=== PATIENT | female | born 1990 | race Caucasian/White ===

== ENCOUNTER → 2016-05-19 | Outpatient (CLI) | payer BC ==
--- NOTE | 2016-05-19 10:13 | REP ---
OB ULTRASOUND: Real-time sonographic evaluation of the gravid uterus is performed utilizing transabdominal technique. There is a single living intrauterine gestation with an estimated gestational age 21 weeks based on LMP with EDC 09/29/2016. Today's measurements indicate appropriate growth. Biometry and Growth: BPD 48 mm = 20 weeks 4 days, 39th percentile HC 179 mm = 20 weeks 2 days, 31st percentile AC 152 mm = 20 weeks 3 days, 38th percentile FL 34 mm = 20 weeks 6 days, 45th percentile HC/AC ratio 1.18 within normal range. Estimated weight 362 grams, 33rd percentile. SEEN/GROSSLY UNREMARKABLE Lateral ventricles Yes Posterior fossa Yes Upper lip No Four-chamber heart Yes LVOT Yes RVOT Yes Stomach Yes Cord insertion Yes Three vessel cord Yes Kidneys Yes Bladder Yes Spine Yes Cervical length: Closed and measures 4.7 cm in length. heart rate: 153 beats per minute. position: Vertex. Placenta: Posterior and grade 0 with no previa or abruption. Amniotic fluid: Within normal limits.
== END ==
LOC: M WHC 08:01
PROVIDERS: ATTEND Obstetrics & Gynecology
DX: Z34.82 Encounter for supervision of other normal pregnancy, second trimester (principal)

== ENCOUNTER → 2016-06-09 | Outpatient (CLI) | payer BC ==
--- NOTE | 2016-06-09 13:11 | REP ---
Obstetric ultrasound for follow-up of anatomy: On the prior study dated 05/19 2016, the upper lip of was not adequately demonstrated. The remainder of the anatomy was unremarkable. On the study today the upper lip is adequately demonstrated and is unremarkable. The remainder of the anatomy previously was unremarkable and is not repeated today. There is again a single intrauterine gestation. Fetus is in vertex presentation. There is motion and cardiac activity, the heart rate is 139 beats per minute. The cervix is 5 cm in length. According to the first ultrasound during this gestation the gestational age is 24-week 0 days with an ADONAY of 09/29/2016. No additional evaluation is requested or performed at today. Signed by James Newman MD 06/09/2016 01:02 P
== END ==
LOC: M WHC 10:17
PROVIDERS: ATTEND Obstetrics & Gynecology
DX: Z34.82 Encounter for supervision of other normal pregnancy, second trimester (principal)

== ENCOUNTER → 2016-06-17 | Outpatient (CLI) | payer BC ==
[2016-06-17 13:53] LABS: MEAN CORPUSCULAR HEMOGLOBIN 29.5 pg (27.0-33.0); MEAN CORPUSCULAR HGB CONC 32.1 g/dl (32.0-36.5); MEAN CORPUSCULAR VOLUME 92.2 fl (80.0-96.0); RED CELL DISTRIBUTION WIDTH 13.1 % (11.5-14.5); WHITE BLOOD COUNT 11.4 K/mm3 (4.0-10.0)
== END ==
LOC: M SMT 08:41
PROVIDERS: ATTEND Obstetrics & Gynecology
DX: Z34.82 Encounter for supervision of other normal pregnancy, second trimester (principal)

== ENCOUNTER → 2016-08-19 | Outpatient (CLI) | payer BC ==
--- NOTE | 2016-08-20 08:28 | REP ---
Clinical: Growth evaluation. Comparison: 08/12/2016 . Findings: Examination demonstrates a single live intrauterine in cephalic presentation. motion is identified by technologist. Placenta is noted left fundal and grade I without evidence for placenta previa or abruption. Amniotic fluid volume is normal. Cervix measures 5.3 cm in length and appears closed. Nuchal cord cannot be excluded. Gestational age by LMP 34 weeks 1 day with ADONAY 09/29/2016 . Gestational age by current measurements 35 weeks 5 days with ADONAY 09/18/2016 . FHR equals 144 beats per minute. BPD 8.9 cm 35 weeks 6 days HC 33.1 cm 37 weeks 5 days AC 30.2 cm 34 weeks 1 day FL 7.0 cm 35 weeks 5 days HC/AC ratio 1.10 Estimated weight 2599 grams ( 66 percentile). Amniotic fluid index equals 15.1 cm. Impression: Single live advanced gestation in cephalic presentation demonstrating appropriate interval growth. No gross abnormalities are identified. Nuchal cord cannot be excluded. Signed by Jono Hardin MD 08/20/2016 08:19 A
== END ==
LOC: M WHC 08:59
PROVIDERS: ATTEND Obstetrics & Gynecology
DX: Z34.03 Encounter for supervision of normal first pregnancy, third trimester (principal); Z3A.00 Weeks of gestation of pregnancy not specified

== ENCOUNTER → 2016-09-14 | Outpatient (CLI) | payer BC ==
[~2016-09-14] MED LIST: PRENTAB9 PO; TUMS500C PO
[2016-09-14 13:29] LABS: MEAN CORPUSCULAR HEMOGLOBIN 29.1 pg (27.0-33.0); MEAN CORPUSCULAR HGB CONC 32.8 g/dl (32.0-36.5); MEAN CORPUSCULAR VOLUME 88.8 fl (80.0-96.0); RED CELL DISTRIBUTION WIDTH 13.7 % (11.5-14.5)
[2016-09-14 13:48] LABS: ALT/SGPT 11 U/L (12-78); AST/SGOT 13 U/L (15-37); BILIRUBIN,TOTAL 0.2 MG/DL (0.2-1.0); CREATININE FOR GFR 0.56 MG/DL (0.55-1.02); GLOMERULAR FILTRATION RATE > 60.0 (>60); URIC ACID 4.2 MG/DL (2.6-6.0)
== END ==
LOC: M SMT 10:08
PROVIDERS: ATTEND Obstetrics & Gynecology
DX: Z34.83 Encounter for supervision of other normal pregnancy, third trimester (principal)

== ENCOUNTER 2016-09-19 08:29 | Inpatient (IN) | payer BC ==
[2016-09-19] VITALS (8 sets, daily range): BP systolic 121–138; BP diastolic 62–87
[~2016-09-19] VITALS: Ht 162.6 cm; Wt 124.0 kg
[2016-09-19 10:34] LABS: MEAN CORPUSCULAR HEMOGLOBIN 29.3 pg (27.0-33.0); MEAN CORPUSCULAR HGB CONC 33.5 g/dl (32.0-36.5); MEAN CORPUSCULAR VOLUME 87.5 fl (80.0-96.0); RED CELL DISTRIBUTION WIDTH 13.9 % (11.5-14.5)
[2016-09-19] MEDS: miSOPROStol 50 MCG 1/2 TAB (S0191) PO SCH ×3 (11:17→15:21)
--- NOTE | 2016-09-19 13:12 | HPE ---
DATE OF ADMISSION: 09/19/2016 26-year-old, (G) 1, para (P) 1 female at 37 and 2/7 weeks gestation by 8 week ultrasound and expected date of confinement (EDC) of 10/08/2016, who presents for labor induction. Indication for induction at less than 39 weeks is gestational hypertension. She denies contractions or vaginal leak. She denies headaches or blurry vision. COURSE: The patient initiated care at 9 weeks gestation on 03/03/2016. Her first trimester blood pressure was 122/74. At 36+ weeks gestation on 09/14/2016, she had a blood pressure of 142/90. Subsequently followup visit the following day revealed a similar blood pressure. She had labs for preeclampsia which were within normal limits. The decision was made to proceed with induction based upon multiple elevated blood pressures. MEDICAL HISTORY: Noncontributory. SURGICAL HISTORY: None. ALLERGIES: No known drug allergies. SOCIAL HISTORY: The patient is . She denies cigarettes, alcohol or drug use. FAMILY HISTORY: Noncontributory. PHYSICAL EXAMINATION: Blood pressure 143/87. Weight 283 pounds. Pulse 84. She is in no apparent distress. HEAD AND NECK EXAM: Normal. LUNGS: Clear. HEART: Regular rate and rhythm. ABDOMEN: Nontender. Gravid. heart tones Category 1. Contractions rare. STERILE VAGINAL EXAM: 1 cm, 50%, -3 station, vertex. EXTREMITIES: Nontender. LABS: Blood type A positive. Rubella immune. RPR nonreactive. Hepatitis B and C negative. HIV negative. CBC negative on 09/14/2016. ASSESSMENT: 26-year-old, G1, P0, female at 37 and 2/7 weeks gestation with gestational hypertension. The patient is admitted for induction on 09/19/2016. The risks of induction were discussed.
[2016-09-19] MEDS ORDERED: PRENTAB9 PO (14:54)
[2016-09-19] MEDS ORDERED: TUMS500C PO (14:54)
[2016-09-20] VITALS (26 sets, daily range): BP systolic 120–150; BP diastolic 62–89
[2016-09-20] MEDS ORDERED: PROMETHAZINE INJ 25 MG/ML VIAL (J2550) IV ONE ×2 (10:00→21:30)
[2016-09-20] MEDS ORDERED: BUTORPHANOL 2 MG/ML INJ (J0595) IV ONE ×2 (10:00→21:30)
[2016-09-20] MEDS: miSOPROStol 50 MCG 1/2 TAB (S0191) PO SCH (10:42)
[2016-09-20] MEDS ORDERED: OXYTOCIN DRIP 30 UNITS in APPROPRIATE DILUENT 1 EA IV SCH (15:15)
[2016-09-20] MEDS ORDERED: LR 1,000 ML IV SCH (15:15)
[2016-09-20 17:32] LABS: MEAN CORPUSCULAR HEMOGLOBIN 29.5 pg (27.0-33.0); MEAN CORPUSCULAR HGB CONC 33.8 g/dl (32.0-36.5); MEAN CORPUSCULAR VOLUME 87.5 fl (80.0-96.0); RED CELL DISTRIBUTION WIDTH 13.9 % (11.5-14.5); WHITE BLOOD COUNT 10.3 K/mm3 (4.0-10.0)
[2016-09-21] VITALS (61 sets, daily range): BP systolic 110–151; BP diastolic 55–90
[2016-09-21 07:36] LABS: MEAN CORPUSCULAR HEMOGLOBIN 29.8 pg (27.0-33.0); MEAN CORPUSCULAR HGB CONC 33.6 g/dl (32.0-36.5); MEAN CORPUSCULAR VOLUME 88.8 fl (80.0-96.0); RED CELL DISTRIBUTION WIDTH 14.2 % (11.5-14.5); WHITE BLOOD COUNT 11.4 K/mm3 (4.0-10.0)
[2016-09-21] MEDS ORDERED: OXYTOCIN 30 UNITS IN 0.9% NaCl 500ML IV BAG (J2590) As Ordered ONE (09:13)
[2016-09-21] MEDS ORDERED: FENTANYL 2MCG/ML ROPIVACAINE 0.2% IN 0.9% NACL 200ML IVBAG As Ordered ONE (15:20)
[2016-09-21] MEDS ORDERED: NALOXONE INJ 0.4 MG/1 ML VIAL (J2310) IV PRN (16:45)
[2016-09-21] MEDS ORDERED: LACTATED RINGER'S 1000 ML IV PRN (16:45)
[2016-09-21] MEDS ORDERED: diphenhydrAMINE INJ 50MG/ML VIAL (J1200) IV PRN (16:45)
[2016-09-21] MEDS ORDERED: EPIDURAL/PCA KEYS XX PRN (16:45)
[2016-09-21] MEDS ORDERED: REFRIGERATOR IV KEYS XX PRN (16:45)
[2016-09-21] MEDS ORDERED: ONDANSETRON 4MG/2ML VIAL (J2405) IV PRN (16:45)
[2016-09-21] MEDS ORDERED: EPIDURAL COMMENT XX SCH (16:45)
[2016-09-21] MEDS ORDERED: ePHEDrine SULFATE 25 MG/5 ML(5MG/ML) SYRINGE IV PRN (16:45)
[2016-09-21] MEDS ORDERED: FENTANYL/ROPIVACAINE/NACL BAG 200 ML EPIDURAL SCH (16:45)
[2016-09-22] VITALS (12 sets, daily range): BP systolic 111–157; BP diastolic 56–92
[2016-09-22] MEDS ORDERED: OXYTOCIN 30 UNITS IN 0.9% NaCl 500ML IV BAG (J2590) As Ordered ONE (05:14)
[2016-09-22] MEDS ORDERED: LR 1,000 ML IV SCH (05:23)
[2016-09-22] MEDS ORDERED: OXYTOCIN DRIP 30 UNITS in APPROPRIATE DILUENT 1 EA IV SCH (05:23)
[2016-09-22] MEDS ORDERED: IBUPROFEN 800 MG TAB PO PRN (05:30)
[2016-09-22] MEDS ORDERED: ACETAMINOPHEN 500 MG TAB PO PRN (05:30)
[2016-09-22] MEDS ORDERED: PROMETHAZINE 25 MG TAB PO PRN (05:30)
[2016-09-22] MEDS ORDERED: RHOGAM 300 MCG (1500 IU) INJ (J2790) IM SCH (05:30)
[2016-09-22] MEDS ORDERED: DOCUSATE SODIUM 100 MG CAP PO PRN (05:30)
[2016-09-22] MEDS ORDERED: DIBUCAINE 1% OINTMENT 30GM TOP PRN (05:30)
[2016-09-22] MEDS ORDERED: ONDANSETRON 4MG/2ML VIAL (J2405) IV PRN (05:30)
[2016-09-22] MEDS: PRENATAL VITAMINS CHEWABLE TABLET PO SCH (09:30)
[2016-09-23 06:21] VITALS: BP 138/87
[2016-09-23] MEDS: PRENATAL VITAMINS CHEWABLE TABLET PO SCH (07:42)
[2016-09-23 18:10] VITALS: BP 143/77
[2016-09-24 05:56] VITALS: BP 126/77
[2016-09-24] MEDS: PRENATAL VITAMINS CHEWABLE TABLET PO SCH (08:13)
== END 2016-09-24 10:15 | disposition home or self-care (01) | DRG 560 ==
LOC: M LDI 08:29 → M OBS 09-22 08:12
PROVIDERS: ADMIT Specialist; ATTEND Specialist
PROC: 3E0DXGC Introduction of Other Therapeutic Substance into Mouth and Pharynx, External Approach (ICD-10-PCS; 2016-09-19)
PROC: 3E033VJ Introduction of Other Hormone into Peripheral Vein, Percutaneous Approach (ICD-10-PCS; 2016-09-20)
PROC: 10E0XZZ Delivery of Products of Conception, External Approach (ICD-10-PCS; principal; 2016-09-22)
PROC: 0KQM0ZZ Repair Perineum Muscle, Open Approach (ICD-10-PCS; 2016-09-22)
DX: O13.4 Gestational [pregnancy-induced] hypertension without significant proteinuria, complicating childbirth (principal); O70.1 Second degree perineal laceration during delivery; Z37.0 Single live birth; Z3A.37 37 weeks gestation of pregnancy

== ENCOUNTER → 2018-09-28 | Outpatient (REF) | payer BC | LOC: M LAB REF 13:35 | PROVIDERS: ATTEND Advanced Practice Midwife | DX: Z34.80 Encounter for supervision of other normal pregnancy, unspecified trimester (principal) ==

== ENCOUNTER → 2018-10-20 | Outpatient (CLI) | payer BC ==
[2018-10-20 13:27] LABS: ALT/SGPT 11 U/L (12-78); BILIRUBIN,TOTAL 0.2 MG/DL (0.2-1.0); CREATININE FOR GFR 0.57 MG/DL (0.55-1.30); GLOMERULAR FILTRATION RATE > 60.0 (>60); GLUCOSE CHALLENGE TEST 1 HOUR 82 MG/DL (LESS THAN 140); LDH LACTATE DEHYDROGENASE 146 U/L (84-246); URIC ACID 2.8 MG/DL (2.6-6.0)
[2018-10-20 13:43] LABS: BASO % 0.1 % (0.0-1.0); EOS # 0.1 10^3/uL (0.0-0.50); EOS % 0.5 % (0.0-3.0); HEMATOCRIT 39.4 % (36.0-47.0); HEMOGLOBIN 13.1 g/dl (12.0-15.5); LYMPH # 2.3 10^3/uL (1.5-6.5); LYMPH % 21.8 % (24.0-44.0); MEAN CORPUSCULAR HEMOGLOBIN 30.3 pg (27.0-33.0); MEAN CORPUSCULAR HGB CONC 33.2 g/dl (32.0-36.5); MONO # 0.7 10^3/uL (0.0-0.8); MONO % 6.5 % (0.0-5.0); NEUTROPHILS # 7.3 10^3/uL (1.8-7.7); NEUTROPHILS % 70.7 % (36.0-66.0); PLATELET COUNT, AUTOMATED 273 10^3/uL (150-450); RED BLOOD COUNT 4.33 10^6/uL (4.00-5.40); WHITE BLOOD COUNT 10.4 10^3/uL (4.0-10.0)
[2018-10-20 13:48] LABS: RUBELLA IgG QUALITATIVE IMMUNE (IMMUNE)
[2018-10-20 13:53] LABS: HEMOGLOBIN A1c 5.3 %
[2018-10-20 14:02] LABS: CREATININE,RANDOM URINE 63.4 MG/DL; TOTAL PROTEIN,RANDOM URINE 12.1 MG/DL (0.0-12.0)
[2018-10-20 14:16] LABS: HEPATITIS C VIRUS ABY INDEX < 0.0 INDEX (<0.8)
[2018-10-20 14:17] LABS: HIV 1&2 SCREEN CENTAUR NEGATIVE (NEGATIVE)
[2018-10-20 15:57] LABS: CHLAMYDIA DNA AMPLIFICATION NEGATIVE (NEGATIVE); GC DNA AMPLIFICATION NEGATIVE (NEGATIVE)
== END ==
LOC: M SMT 08:46
PROVIDERS: ATTEND Advanced Practice Midwife
DX: O99.211 Obesity complicating pregnancy, first trimester (principal); E66.9 Obesity, unspecified; Z3A.10 10 weeks gestation of pregnancy

== ENCOUNTER → 2018-12-08 | Outpatient (CLI) | payer BC, SELFPAY ==
--- NOTE | 2018-12-08 09:24 | REP ---
OB ULTRASOUND: Real-time sonographic evaluation of the gravid uterus is performed. There is a single living intrauterine gestation. Estimated gestational age is 21 weeks 6 days based on today's ultrasound. EDC 04/14/2019. BPD 52 mm = 21 weeks 6 days HC 190 mm = 21 weeks 2 days AC 174 mm = 22 weeks 2 days Femur length 37 mm = 21 weeks 5 days HC/AC ratio 1.10 within normal range. Estimated weight 465 grams, 51st percentile. Stated estimated gestational age is 20 weeks 4 days with EDC 04/23/2019. If this is correct the estimated weight is at the 97th percentile. Cervix is closed and measures 4.9 cm in length. heart rate 155 beats per minute. SEEN/GROSSLY UNREMARKABLE Lateral ventricles Yes Posterior fossa Yes Upper lip No Four-chamber heart No LVOT No RVOT No Stomach Yes Cord insertion Yes Three vessel cord Yes Kidneys Yes Bladder Yes Spine Yes position: Breech. Placenta: Anterior and grade 0 with no previa or abruption. Amniotic fluid: Within normal limits. Electronically Signed by James George MD 12/12/2018 09:07 A
== END ==
LOC: M RAD 07:29
PROVIDERS: ATTEND Advanced Practice Midwife
DX: Z34.82 Encounter for supervision of other normal pregnancy, second trimester (principal)

== ENCOUNTER → 2019-01-16 | Outpatient (CLI) | payer BC ==
[2019-01-16 13:46] LABS: HEMATOCRIT 34.2 % (36.0-47.0); HEMOGLOBIN 11.2 g/dl (12.0-15.5); MEAN CORPUSCULAR HEMOGLOBIN 30.2 pg (27.0-33.0); MEAN CORPUSCULAR HGB CONC 32.7 g/dl (32.0-36.5); MEAN CORPUSCULAR VOLUME 92.2 fl (80.0-96.0); PLATELET COUNT, AUTOMATED 251 10^3/uL (150-450); RED BLOOD COUNT 3.71 10^6/uL (4.00-5.40); WHITE BLOOD COUNT 11.5 10^3/uL (4.0-10.0)
== END ==
LOC: M SMT 09:05
PROVIDERS: ATTEND Advanced Practice Midwife
DX: O99.212 Obesity complicating pregnancy, second trimester (principal); Z3A.00 Weeks of gestation of pregnancy not specified

== ENCOUNTER → 2019-02-22 | Outpatient (CLI) | payer BC ==
--- NOTE | 2019-02-22 15:14 | REP ---
Clinical: Chest pain and palpitations . Comparison: None . Technique: PA and lateral. Findings: The mediastinum and cardiac silhouette are normal. The lung nelson are clear and without acute consolidation, effusion, or pneumothorax. The skeletal structures are intact and normal. Impression: 1. No acute cardiopulmonary process. Electronically Signed by Jono Hardin MD 02/22/2019 03:06 P
== END ==
LOC: M RAD 14:39
PROVIDERS: ATTEND Obstetrics & Gynecology
DX: R00.2 Palpitations (principal)

== ENCOUNTER → 2019-03-07 | Outpatient (CLI) | payer BC ==
[2019-03-07 14:06] LABS: FREE T4 1.09 NG/DL (0.76-1.46); NT-PRO BNP 25 PG/ML (<125); TROPONIN I < 0.02 NG/ML (< 0.10)
== END ==
LOC: M PLALAB 10:13
PROVIDERS: ATTEND Obstetrics & Gynecology
DX: R00.2 Palpitations (principal)

== ENCOUNTER → 2019-03-19 | Outpatient (CLI) | payer BC ==
--- NOTE | 2019-03-20 02:02 | REP ---
Clinical: Growth evaluation. Comparison: 01/11/2019 . Findings: Examination demonstrates a single live intrauterine in cephalic presentation. motion is identified by technologist. Placenta is noted anterior and grade I without evidence for placenta previa or abruption. Amniotic fluid volume is normal. Cervix measures 3.9 cm in length and appears closed. No evidence for nuchal cord. Gestational age by first US 36 weeks 2 days with ADONAY 04/14/2019 . Gestational age by current measurements 38 weeks 6 days with ADONAY 03/28/2019 FHR equals 156 beats per minute. BPD 9.5 cm 38 weeks 5 days HC 35.6 cm 41 weeks 5-day AC 35.6 cm 99 weeks 4 days FL 7.3 cm 37 weeks 3 days HL 6.5 cm 37 weeks 5 days HC/AC ratio 1.00 Estimated weight 3717 grams (> 97%). Amniotic fluid index: 21.8 cm (7.7 - 24.8) Impression: Single live advanced gestation in cephalic presentation demonstrating greater than expected interval growth.
== END ==
LOC: M WHC 10:55
PROVIDERS: ATTEND Advanced Practice Midwife
DX: O26.849 Uterine size-date discrepancy, unspecified trimester (principal); Z3A.36 36 weeks gestation of pregnancy

== ENCOUNTER → 2019-03-23 | Outpatient (REF) | payer BC | LOC: M SFHCWAGY 12:02 | PROVIDERS: ATTEND Advanced Practice Midwife | DX: Z36.85 Encounter for antenatal screening for Streptococcus B (principal) ==

== ENCOUNTER → 2019-04-03 | Outpatient (CLI) | payer BC | LOC: M PLALAB 11:16 | PROVIDERS: ATTEND Advanced Practice Midwife | DX: Z34.83 Encounter for supervision of other normal pregnancy, third trimester (principal) ==

== ENCOUNTER → 2019-04-09 | Outpatient (CLI) | payer BC ==
--- NOTE | 2019-04-09 16:59 | REPPI ---
Clinical: Growth evaluation. Comparison: 03/19/2019 . Findings: Examination demonstrates a single live intrauterine in cephalic presentation. motion is identified by technologist. Placenta is noted the anterior and grade air I I I without evidence for placenta previa or abruption. Amniotic fluid volume is normal. Gestational age by first US 39 weeks 2 days with ADONAY 04/14/2019 . Gestational age by current measurements 39 weeks 0 days with ADONAY 04/16/2019 . FHR equals 144 beats per minute. Estimated weight 3945 grams ( 75th percentile). Amniotic fluid index: 20.1 cm (7.2 - 22.3) Impression: Single live advanced gestation in cephalic presentation demonstrating appropriate interval growth compared to first ultrasound. Electronically Signed by Jono Hardin MD 04/09/2019 04:50 P
== END ==
LOC: M PLAIMG 10:40
PROVIDERS: ATTEND Advanced Practice Midwife
DX: O26.843 Uterine size-date discrepancy, third trimester (principal)

== ENCOUNTER 2019-04-14 08:53 | Inpatient (IN) | payer BC ==
[~2019-04-14] VITALS: Ht 162.6 cm; Wt 130.5 kg
[2019-04-14] VITALS (32 sets, daily range): BP systolic 105–215; BP diastolic 53–100
[2019-04-14] MEDS: PRENATAL VITAMINS CHEWABLE TABLET PO SCH (09:00)
[2019-04-14] MEDS ORDERED: OXYTOCIN 30 UNITS IN 0.9% NaCl 500ML IV BAG (J2590) As Ordered ONE (09:12)
[2019-04-14] MEDS ORDERED: LACTATED RINGER'S 1000 ML IV STA (09:34)
[2019-04-14] MEDS ORDERED: LR 1,000 ML IV SCH ×2 (09:34→14:29)
[2019-04-14 09:53] LABS: HEMATOCRIT 36.5 % (36.0-47.0); HEMOGLOBIN 11.6 g/dl (12.0-15.5); MEAN CORPUSCULAR HEMOGLOBIN 26.3 pg (27.0-33.0); MEAN CORPUSCULAR HGB CONC 31.8 g/dl (32.0-36.5); MEAN CORPUSCULAR VOLUME 82.8 fl (80.0-96.0); PLATELET COUNT, AUTOMATED 305 10^3/uL (150-450); RED BLOOD COUNT 4.41 10^6/uL (4.00-5.40); WHITE BLOOD COUNT 12.3 10^3/uL (4.0-10.0)
[2019-04-14] MEDS ORDERED: FENTANYL 2MCG/ML ROPIVACAINE 0.2% IN 0.9% NACL 100ML IVBAG As Ordered ONE (10:05)
[2019-04-14] MEDS ORDERED: LR 500 ML IV ONE (10:30)
[2019-04-14] MEDS ORDERED: ONDANSETRON 4MG/2ML VIAL (J2405) IV PRN ×2 (11:30→14:30)
[2019-04-14] MEDS ORDERED: LACTATED RINGER'S 1000 ML IV PRN (11:30)
[2019-04-14] MEDS ORDERED: EPIDURAL COMMENT XX SCH (11:30)
[2019-04-14] MEDS ORDERED: NALOXONE INJ 0.4 MG/1 ML VIAL (J2310) IV PRN (11:30)
[2019-04-14] MEDS ORDERED: FENTANYL/ROPIVACAINE/NACL BAG 100 ML EPIDURAL SCH (11:30)
[2019-04-14] MEDS ORDERED: diphenhydrAMINE INJ 50MG/ML VIAL (J1200) IV PRN (11:30)
[2019-04-14] MEDS ORDERED: ePHEDrine SULFATE 25 MG/5 ML(5MG/ML) SYRINGE IV PRN (11:30)
[2019-04-14] MEDS ORDERED: REFRIGERATOR IV KEYS XX PRN (11:30)
[2019-04-14] MEDS ORDERED: EPIDURAL/PCA KEYS XX PRN (11:30)
[2019-04-14] MEDS ORDERED: OXYTOCIN DRIP 30 UNITS in IV 1 EA IV SCH (14:29)
[2019-04-14] MEDS ORDERED: MEASLES,MUMPS,RUBELLA VACCINE INJ (MMR-II) (90707) SC SCH (14:30)
[2019-04-14] MEDS ORDERED: DIBUCAINE 1% OINTMENT 30GM TOP PRN (14:30)
[2019-04-14] MEDS ORDERED: ACETAMINOPHEN 500 MG TAB PO PRN (14:30)
[2019-04-14] MEDS ORDERED: DOCUSATE SODIUM 100 MG CAP PO PRN (14:30)
[2019-04-14] MEDS ORDERED: RHOGAM 300 MCG (1500 IU) INJ (J2790) IM SCH (14:30)
[2019-04-14] MEDS ORDERED: PROMETHAZINE 25 MG TAB PO PRN (14:30)
[2019-04-14] MEDS ORDERED: ANUSOL HC CREAM 30GM TOP PRN (14:30)
[2019-04-14] MEDS ORDERED: ACETAMINOPHEN TAB 650MG DOSE (2X325MG) PO PRN (14:30)
[2019-04-14] MEDS ORDERED: IBUPROFEN 800 MG TAB PO PRN (14:30)
[2019-04-15 02:00] VITALS: BP 136/78
[2019-04-15] MEDS: IBUPROFEN 600 MG TAB PO PRN ×2 (02:22→17:38)
[2019-04-15 05:46] VITALS: BP 128/76
[2019-04-15] MEDS: PRENATAL VITAMINS CHEWABLE TABLET PO SCH (09:16)
[2019-04-15 10:00] VITALS: BP 128/71
[2019-04-15 14:00] VITALS: BP 131/62
[2019-04-15 18:00] VITALS: BP 126/68
[2019-04-16 06:04] VITALS: BP 131/84
[2019-04-16] MEDS: PRENATAL VITAMINS CHEWABLE TABLET PO SCH (08:15)
== END 2019-04-16 14:30 | disposition home or self-care (01) | DRG 560 ==
LOC: M LDO 08:53 → M LDI 09:16 → M OBS 17:50
PROVIDERS: ADMIT Obstetrics & Gynecology; ATTEND Obstetrics & Gynecology
PROC: 10E0XZZ Delivery of Products of Conception, External Approach (ICD-10-PCS; principal; 2019-04-14)
PROC: 0HQ9XZZ Repair Perineum Skin, External Approach (ICD-10-PCS; 2019-04-14)
DX: O99.214 Obesity complicating childbirth (principal); E66.9 Obesity, unspecified; Z37.0 Single live birth; Z3A.38 38 weeks gestation of pregnancy; O69.81X0 Labor and delivery complicated by cord around neck, without compression, not applicable or unspecified; O70.0 First degree perineal laceration during delivery

== ENCOUNTER → 2020-07-08 | Outpatient (REF) | payer BC | LOC: M SFHCWAGY 12:43 | PROVIDERS: ATTEND Obstetrics & Gynecology | DX: Z12.4 Encounter for screening for malignant neoplasm of cervix (principal) | CPT/HCPCS: 87624; G0123 ==

== ENCOUNTER → 2020-11-11 | Outpatient (REF) | payer BC ==
[2020-11-11 14:38] LABS: GC DNA AMPLIFICATION NEGATIVE (NEGATIVE)
== END ==
LOC: M SFHCWAGY 12:56
PROVIDERS: ATTEND Specialist
DX: Z20.2 Contact with and (suspected) exposure to infections with a predominantly sexual mode of transmission (principal)

== ENCOUNTER → 2022-10-20 | Outpatient (REF) | payer BC, OTHER | LOC: M SFHCWAGY 17:18 | PROVIDERS: ATTEND Obstetrics & Gynecology | DX: Z01.419 Encounter for gynecological examination (general) (routine) without abnormal findings (principal) ==